=== PATIENT | male | born 1970 | race African-American/Black ===

== ENCOUNTER 2019-10-15 18:15 | Emergency (ER) | payer MEDICARE ==
[~2019-10-15] VITALS: Ht 188 cm; Wt 135.0 kg
[2019-10-15] MEDS ORDERED: MAGNESIUM/ALUMINUM HYDROXIDE/SIMETHICONE 30ML UDC PO ONE (21:15)
[2019-10-15] MEDS ORDERED: ASPIRIN 81MG TABLET PO ONE (21:15)
[2019-10-15] MEDS ORDERED: VISCOUS LIDOCAINE 2% 15 ML UDC PO ONE (21:15)
[2019-10-15] MEDS ORDERED: KETOROLAC 30MG/ML VIAL IV ONE (21:45)
[2019-10-15 22:31] LABS: HEMATOCRIT. 47.8 % (42.0-52.0); HEMOGLOBIN. 16.8 g/dL (14.0-18.0); MEAN CORPUSCULAR HEMOGLOBIN 29.5 pg (28.0-32.0); MEAN CORPUSCULAR VOLUME 83.8 fL (80.0-94.0); MEAN PLATELET VOLUME 8.4 fl (7.4-10.4); PLATELET 216 x1000/uL (130-400); RED CELL DISTRIBUTION WIDTH 14.5 % (11.6-14.6)
[2019-10-15 22:38] LABS: CHLORIDE 104 mEq/L (98-107)
[2019-10-15 22:47] LABS: PLATELET ESTIMATE NORMAL
[2019-10-16 01:20] VITALS: BP 133/82
== END 2019-10-16 01:22 | disposition home or self-care (01) ==
LOC: ER 18:15
DX: R07.89 Other chest pain (principal); R94.5 Abnormal results of liver function studies
CPT/HCPCS: 36415; 71045; 80053; 83880; 84484; 85025; 93005; 96374; 99284; J1885